=== PATIENT | female | born 2000 | race Caucasian/White ===

== ENCOUNTER 2023-06-13 00:19 | Emergency (ER) | payer SELFPAY ==
[2023-06-13 00:20] VITALS: BP 126/83; PULSE 97; RESP 16; TEMP 36.9; O2SAT 100; BMI 29.0
--- NOTE | 2023-06-13 00:33 | PC.NURSE ---
This nurse attempted to start a IV on the pt. pt refused to let me stick her stating that she needs a US IV because she will pass out. This nurse left the room without starting the IV
[2023-06-13 00:54] VITALS: BP 113/84; PULSE 97; RESP 16; O2SAT 100
[2023-06-13] MEDS: ondansetron 2 mg/ML SDV 2 mL 4 MG IVP (01:26)
[2023-06-13] MEDS: sodium chloride 0.9% 1,000 ML 999 ML IV (01:26)
[2023-06-13 01:35] LABS: Basophils # 0.1 10^3/uL (0.0-0.1); Basophils % 0.4 %; Eosinophils # 0.2 10^3/uL (0.0-0.8); Eosinophils % 1.5 %; Hematocrit 47.5 % (36-47); Lymphocytes # 2.1 10^3/uL (0.8-4.8); Lymphocytes % 13.4 %; Mean Corpuscular HGB Conc 33.3 g/dL (30-55); Mean Corpuscular Hemoglobin 28.4 pg (27-33); Mean Corpuscular Volume 85.4 fl (85-98); Mean Platelet Volume 10.2 fL (7.4-10.4); Monocytes % 6.4 %; Neutrophils # 12.14 10^3/uL (1.8-7.7); Neutrophils % 77.9 %; Nucleated Red Blood Cells % 0 %; Platelet Count 326 10^3/cmm (157-399); Red Blood Count 5.56 10^6/uL (3.85-5.65); Red Cell Distribution Width 12.4 % (12.1-15.1); White Blood Count 15.58 10^3/uL (3.29-11.43)
--- NOTE | 2023-06-13 01:49 | CTR_ITS ---
PROCEDURE INFORMATION: Exam: CT Abdomen And Pelvis With Contrast Exam date and time: 06/13/2023 2:25 AM Age: 23 years old Clinical indication: Pain and abnormal findings; Abnormal lab test; Elevated wbc and other: Urine; Abdominal pain; Localized; Lower; Patient HX: Pelvic pain; Additional info: Abdominal pain with elevated white count TECHNIQUE: Imaging protocol: Computed tomography of the abdomen and pelvis with contrast. Radiation optimization: All CT scans at this facility use at least one of these dose optimization techniques: automated exposure control; mA and/or kV adjustment per patient size (includes targeted exams where dose is matched to clinical indication); or iterative reconstruction. Contrast material: OMNI 350; Contrast volume: 100 ml; Contrast route: INTRAVENOUS (IV); REPORTING DATA: Count of CT and Cardiac NM exams in prior 12 months: This patient has received 0 known CTs and 0 known cardiac nuclear medicine studies in the 12 months prior to the current study. COMPARISON: No relevant prior studies available. RADIATION DOSE METRICS: Total DLP (mGy-cm): 921.58 FINDINGS: Liver: Normal. No mass. Gallbladder and bile ducts: Normal. No calcified stones. No ductal dilation. Pancreas: Normal. No ductal dilation. Spleen: Normal. No splenomegaly. Adrenal glands: Normal. No mass. Kidneys and ureters: Normal. No hydronephrosis. Stomach and bowel: Unremarkable. No obstruction. No mucosal thickening. Appendix: No evidence of appendicitis. Intraperitoneal space: Free fluid in the cul-de-sac. Vasculature: Unremarkable. No abdominal aortic aneurysm. Lymph nodes: Unremarkable. No enlarged lymph nodes. Urinary bladder: Unremarkable as visualized. Reproductive: 3.8 cm cystic lesion in the right adnexa. Further evaluation with ultrasound is recommended. Bones/joints: Unremarkable. No acute fracture. Soft tissues: Unremarkable. CT/CT abdomen pelvis w con* [id number] IMPRESSION: 3.8 cm cystic lesion in the right adnexa. Further evaluation with ultrasound is recommended. Moderate amount of free fluid in the cul-de-sac.
[2023-06-13 01:56] LABS: Alanine Aminotransferase 12 U/L (0-33); Albumin Level 4.5 g/dL (3.5-5.2); Alkaline Phosphatase 84 U/L (35-105); Anion Gap 13.9 (5-19); Aspartate Amino Transferase 12 U/L (0-32); Blood Urea Nitrogen 17 mg/dL (6-20); Calcium 9.6 mg/dL (8.5-10.5); Carbon Dioxide 26 mmol/L (22-29); Chloride 102 mmol/L (98-107); Globulin 3.7 g/dL (1.3-4.6); Glomerular Filtration Rate 123.9 mL/min (90-130); Glucose 111 mg/dL (65-115); Lipase 16 U/L (13-60); Osmolality Calculated 288 mOsm/kg (285-295); Potassium 3.9 mmol/L (3.5-5.1); Sodium 138 mmol/L (136-145); Total Bilirubin 0.6 mg/dL (0.15-1.2); Total Protein 8.2 g/dL (6.6-8.7)
[2023-06-13 02:09] LABS: Add Urine Microscopic? YES; Bilirubin Urine 1+ (Negative); Blood Urine 2+ (Negative); Glucose Urine UA Norm (Normal); Ketones Urine Negative (Negative); Leukocyte Esterase Urine 2+ (Negative); Nitrate Urine Negative (Negative); Protein Urine 1+ (Negative); Urine Appearance Cloudy (CLEAR); Urine Color Yellow (Yellow); Urobilinogen Urine Neg (Negative); pH Urine 5 (5-7)
[2023-06-13 02:10] LABS: Add Urine Culture? No; Amorphous Sediment Urine 2+ /hpf; Bacteria Urine 2+ /hpf; Mucus Urine 2+ /hpf; RBC Urine 0-4 /hpf (0-2); Squamous Epithelial Cell Urine 15-25 /hpf (0-5)
[2023-06-13 02:23] LABS: HCG Qualitative Urine. Negative (Negative)
[2023-06-13] MEDS: iohexol 350 mg/mL 500 mL Btl (per mL) IV (02:29)
[2023-06-13 03:00] VITALS: BP 141/81; PULSE 99; RESP 16; O2SAT 99
--- NOTE | 2023-06-13 03:33 | ED_ITS ---
HPI - Abdominal Pain 2 General: Chief Complaint: Abdominal Pain Stated Complaint: abd pain Time Seen by Provider: 06/13/23 00:28 History of Present Illness: 23-year-old female presents em ergency room with vague abdominal pain for the past 1 and half week and described the pain as cramping sensation with severity of 7 out of 10. Patient reveals increased pain today and denies any recent fever, chills, diarrhea, bloody stool or dark stool. No vaginal bleeding or vaginal discharge. Denies any flank pain recent foreign travel or sick contacts. Patient denies any prior abdominal surgery. Associated Symptoms: Reports nausea; Denies chills, coffee ground emesis, dysuria, fever(s), heartburn, hematuria, hematemesis and vomiting Related Data: Date of Last Menstrual Period: 05/21/23 Review of Systems 2 General: Reports: 10 or more systems reviewed and unremarkable except in HPI and below Const: Denies: fever(s), chills, body aches, change in appetite, change in weight, fatigue or malaise Card: Denies: chest pain, palpitations, irregular heart rhythm or edema Resp: Denies: dyspnea, productive cough or non-productive cough GI: Reports: abdominal pain and nausea; Denies: vomiting, hematemesis, coffee ground emesis, dysphagia, heartburn or early satiety : Denies: flank pain, difficulty voiding, dysuria, urinary frequency, urinary urgency, urinary hesitancy, dribbling, nocturia, oliguria, urinary incontinence, hematuria or genital lesions [facility] ED 2 Female Reproductive History: Date of last menstrual period: 05/21/23 Physical Exam 2 HENMT: COMMON NORMALS: normocephalic, atraumatic, hearing grossly normal bilaterally, external ears normal, EAC's normal, TM's normal bilaterally, Normal external nose present, Normal nasal mucous membranes and turbinates present, moist oral mucous membranes, oropharynx normal, dentition normal and gingiva normal HEAD & SCALP: normocephalic and atraumatic NOSE: Normal external nose present and Normal nasal mucous membranes and turbinates present E XTERNAL EAR: Yes external ears normal EXTERNAL AUDITORY CANAL: EAC's normal TYMPANIC MEMBRANE: TM's normal bilaterally Resp: COMMON NORMALS: normal respiratory effort, No retractions, No use of accessory muscles, clear to auscultation bilaterally and percussion normal A USCULTATION: clear to auscultation bilaterally PERCUSSION: percussion normal GI: COMMON NORMALS: Soft to palpation and No hepatosplenomegaly present I NSPECTION: Yes normal to inspection AUSCULTATION: Yes normoactive bowel sounds PALPATION: Yes Soft to palpation, No Firmness to palpation present (GI), Yes Tenderness to palpation present (GI) Details: LLQ, RLQ, LUQ and RUQ, Yes No hepatosplenomegaly present, No Hepatosplenomegaly present, No Hepatomegaly present, No Splenomegaly present, No Hernia present, No Palpable mass present, No Pulsatile mass present and No Ascites present : EXTERNAL FEMALE EXAM: No Hernia present Course 2 Reevaluation(s): Reevaluation #1: At [address] scan results discussed with patient. Patient still having pain. Given the finding on the CT scan. Ultrasound was ordered to rule out ovarian torsion. Care transferred to Dr. Curran pending ultrasound results Vital Signs: Vital signs: Vital Signs Temperature 98.4 F 06/13/23 07:46 Pulse Rate 106 H 06/13/23 07:46 Respiratory Rate 16 06/13/23 06:00 Blood Pressure 107/76 06/13/23 07:46 Pulse Oximetry 99 06/13/23 07:46 Oxygen Delivery Me thod Room Air 06/13/23 00:20 MDM - Abdominal Pain Medical Decision Making Patient made comfortable emergency room had extensive workup including CBC, CMP, lipase, UA, test CT abdomen pelvis. I discussed the lab finding with the patient. Patient will be discharged home with oral antibiotics and some for nausea. Close follow-up PCP recommended for further evaluation and treatment. Lab Data 06/13/23 01:28 06/13/23 01:28 Labs/Radiology: Radiology Impressions Abdomen/Pelvis CT 06/13/23 01:49 IMPRESSION: 3.8 cm cystic lesion in the right adnexa. Further evaluation with ultrasound is recommended. Moderate amount of free fluid in the cul-de-sac. Transvaginal US 06/13/23 05:33 IMPRESSION: 1. No sonographic evidence of torsion. 2. 4.2 x 3.4 x 2.1 cm hemorrhagic cyst in the right ovary. Small amount of fluid in the right adnexal region. Fluid in the cul-de-sac. Laboratory Results WBC 15.58 10^3/uL (3.29-11.43) H 06/13/23 01:28 RBC 5.56 10^6/uL (3.85-5.65) 06/13/23 01:28 Hgb 15.80 g/dL (11.27-16.99) 06/13/23 01:28 Hct 47.5 % (36-47) H 06/13/23 01:28 MCV 85.4 fl (85-98) 06/13/23 01:28 MCH 28.4 pg (27-33) 06/13/23 01:28 MCHC 33.3 g/dL (30-55) 06/13/23 01:28 RDW 12.4 % (12.1-15.1) 06/13/23 01:28 Plt Count 326 10^3/cmm (157-399) 06/13/23 01:28 MPV 10.2 fL (7.4-10.4) 06/13/23 01:28 Neut % (Auto) 77.9 % 06/13/23 01:28 Lymph % (Auto) 13.4 % 06/13/23 01:28 Jones % (Auto) 6.4 % 06/13/23 01:28 Eos % (Auto) 1.5 % 06/13/23 01:28 Baso % (Auto) 0.4 % 06/13/23 01:28 Neut # (Auto) 12.14 10^3/uL (1.8-7.7) H 06/13/23 01:28 Lymph # (Auto) 2.1 10^3/uL (0.8-4.8) 06/13/23 01:28 Jones # (Auto) 1.0 10^3/uL (0.2-0.9) H 06/13/23 01:28 Eos # (Auto) 0.2 10^3/uL (0.0-0.8) 06/13/23 01:28 Baso # (Auto) 0.1 10^3/uL (0.0-0.1) 06/13/23 01:28 Nucleated RBC % (auto) 0 % 06/13/23 01:28 Nucleated RBCs # 0.0 /100WBC 06/13/23 01:28 Sodium 138 mmol/L (136-145) 12/29/23 01:28 Potassium 3.9 mmol/L (3.5-5.1) 06/13/23 01:28 Chloride 102 mmol/L (98-107) 06/13/23 01:28 Carbon Dioxide 26 mmol/L (22-29) 06/13/23 01:28 Anion Gap 13.9 (5-19) 06/13/23 01:28 BUN 17 mg/dL (6-20) 06/13/23 01:28 Creatinine 0.6 mg/dL (0.5-0.9) 06/13/23 01:28 GFR Calculation 123.9 mL/min (90-130) 06/13/23 01:28 Glucose 111 mg/dL (65-115) 06/13/23 01:28 Calculated Osmolality 288 mOsm/kg (285-295) 06/13/23 01:28 Calcium 9.6 mg/dL (8.5-10.5) 06/13/23 01:28 Total Bilirubin 0.6 mg/dL (0.15-1.2) 06/13/23 01:28 AST 12 U/L (0-32) 06/13/23 01:28 ALT 12 U/L (0-33) 06/13/23 01:28 Alkaline Phosphatase 84 U/L (35-105) 06/13/23 01:28 Total Protein 8.2 g/dL (6.6-8.7) 06/13/23 01:28 Albumin 4.5 g/dL (3.5-5.2) 06/13/23 01:28 Globulin 3.7 g/dL (1.3-4.6) 06/13/23 01:28 Lipase 16 U/L (13-60) 06/13/23 01:28 HCG, Qual Negative (Negative) 06/13/23 01:28 Urine Color Yellow (Yellow) 06/13/23 01:28 Urine Appearance Cloudy (CLEAR) A 06/13/23 01:28 Urine pH 5 (5-7) 06/13/23 01:28 Ur Specific [place] 1.020 (1.005-1.030) 06/13/23 01:28 Urine Protein 1+ (Negative) H 06/13/23 01:28 Urine Glucose (UA) Norm (Normal) 06/13/23 01:28 Urine Ketones Negative (Negative) 06/13/23 01:28 Urine Blood 2+ (Negative) H 06/13/23 01:28 Urine Nitrate Negative (Negative) 06/13/23 01:28 Urine Bilirubin 1+ (Negative) H 06/13/23 01:28 Urine Urobilinogen Neg mg/dL (Negative) 06/13/23 01:28 Ur Leukocyte Esterase 2+ (Negative) H 06/13/23 01:28 Urine RBC 0-4 /hpf (0-2) H 06/13/23 01:28 Urine WBC 5-10 /hpf (0-5) H 06/13/23 01:28 Ur Squamous Epith Cells 15-25 /hpf (0-5) H 06/13/23 01:28 Ur Transition Epith Cell 5-10 /hpf 06/13/23 01:28 Amorphous Sediment 2+ /hpf 06/13/23 01:28 Urine Bacteria 2+ /hpf (NONE) H 06/13/23 01:28 Urine Mucus 2+ /hpf 06/13/23 01:28 All radiology interpretation(s) finalized by discharge Discharge Plan Discharge Patient Disposition: Home Clinical Impression: Abdominal pain Qualifiers: Abdominal location: unspecified location Qualified Code(s): R10.9 - Unspecified abdominal pain Ovarian cyst Qualifiers: Laterality: unspecified laterality Qualified Code(s): N83.209 - Unspecified ovarian cyst, unspecified side UTI (urinary tract infection) Qualifiers: Urinary tract infection type: site unspecified Hematuria presence: without hematuria Qualified Code(s): N39.0 - Urinary tract infection, site not specified Leukocytosis Qualifiers: Leukocytosis type: unspecified Qualified Code(s): D72.829 - Elevated white blood cell count, unspecified Condition: Stable Prescriptions: New ciprofloxacin HCl 500 mg tablet 500 mg PO Q12H Qty: 20 0RF Discharge Orders: Discharge ED (Routine); Ordered 06/13/23 Ordered By: Bryan Curran Referrals: Selin Anderson PAC [Primary Care Provider] - 1 week Patient Instructions: Abdominal Pain (ED), Opioid Safety, Pain Management Activity Restrictions/Additional Instructions: Please take all your medicine as directed. Please follow-up with your family practice physician in the next 7 to 10 days for further evaluation and treatment. Coding Level of Care Code ED Spider Assembler for Christine Cohn
[2023-06-13 04:30] VITALS: BP 116/88; PULSE 85; RESP 16; O2SAT 99
--- NOTE | 2023-06-13 05:33 | USR_ITS ---
PROCEDURE INFORMATION: Exam: US Pelvis, Transvaginal Exam date and time: 06/13/2023 6:38 AM Age: 23 years old Clinical indication: Abdominal pain and pelvic pain; Lower abdomen; Additional info: Abdominal pain with ovarian cyst rule out torsion TECHNIQUE: Imaging protocol: Real-time transvaginal pelvic ultrasound with image documentation. Transvaginal imaging was used for better evaluation of the endometrium, adnexa, and/or cervix. COMPARISON: CT abdomen pelvis w con* [id number] 06/13/2023 2:25 AM FINDINGS: Uterus: Uterus is normal. Endometrial stripe is normal. Right ovary/adnexa: 3.4 x 2.1 x 4.2 cm hemorrhagic cyst in the right ovary. Normal ovarian blood flow Left ovary/adnexa: Normal. No mass. Normal ovarian blood flow. Intraperitoneal space: Small amount of fluid in the right adnexal region. Fluid in the cul-de-sac. US/US transvaginal [id number] IMPRESSION: 1. No sonographic evidence of torsion. 2. 4.2 x 3.4 x 2.1 cm hemorrhagic cyst in the right ovary. Small amount of fluid in the right adnexal region. Fluid in the cul-de-sac.
[2023-06-13 06:00] VITALS: BP 107/76; PULSE 106; RESP 16; O2SAT 99
[2023-06-13 07:46] VITALS: BP 107/76; PULSE 106; TEMP 36.9; O2SAT 99
== END 2023-06-13 07:47 | disposition home or self-care (01) ==
PROVIDERS: Emergency Provider Family Medicine; PCP Physician Assistant
DX: N83.201 Unspecified ovarian cyst, right side (principal); N39.0 Urinary tract infection, site not specified; D72.829 Elevated white blood cell count, unspecified
CPT/HCPCS: 74177; 76830; 80053; 81001; 81025; 83690; 85025; 96374; 99285; J2405; J7030; Q9967

== ENCOUNTER 2024-03-14 16:28 | Emergency (ER) | payer SELFPAY ==
[2024-03-14 17:17] VITALS: BP 90/50; PULSE 87; RESP 17; TEMP 38.4; O2SAT 98; BMI 30.9
--- NOTE | 2024-03-14 17:33 | ED_ITS ---
HPI - Weakness General: Chief complaint: Weakness Stated complaint: body pain, weakness, Time Seen by Provider: 03/14/24 17:31 History of Present Illness: 23-year-old female comes in today with c omplaints of weakness and bodyaches. Patient presents with a temperature of 101.1. Patient reports sore throat. Review of Systems General: Reports: 10 or more systems reviewed and unremarkable except in HPI and below Physical Exam Const: COMMON NORMALS: alert HENMT: COMMON NORMALS: normocephalic HEAD & SCALP: normocephalic THROAT: abnormal tonsil bilateral erythema and hypertrophy Neck/C-Spine: COMMON NORMALS: full ROM and no meningeal signs Resp: COMMON NORMALS: normal respiratory effort Cardio: COMMON NORMALS: regular rate RATE: regular rate Back/Pelvis: COMMON NORMALS: thoracic and lumbar spine normal to inspection Extremity: COMMON NORMALS: full ROM Neuro: SENSORIUM/ORIENTATION: Yes alert MENINGEAL SIGNS: Yes no meningeal signs Skin: COMMON NORMALS: turgor normal GENERAL SKIN EXAM: turgor normal Course Vital Signs: Vital signs: Vital Signs Temperature 101.1 F H 03/14/24 17:17 Pulse Rate 83 03/14/24 18:02 Respiratory Rate 17 03/14/24 17:17 Blood Pressure 90/50 03/14/24 17:17 Pulse Oximetry 99 03/14/24 18:02 Oxygen Delivery Me thod Room Air 03/14/24 18:02 MDM - Weakness Medical Decision Making 23-year-old female comes in today for complaints of bodyaches, fever, and throat pain. On exam patient appears nontoxic. Posterior pharynx is erythematous with tonsillar enlargement. Patient has a temperature of 101.1. Lungs are clear to auscultation. Skin is warm and dry. Differential diagnosis includes not limited to viral syndrome, upper respiratory infection, strep pharyngitis. Strep test was positive. Patient was negative for COVID and flu. Reviewed exam with patient with recommendation for treatment and follow-up. Patient was placed on Augmentin 875 1 tablet twice a day for 7 days. Patient was recommended to follow-up with primary care for further instructions return to ED for new concerns. Lab Data Laboratory Results Coronavirus (PCR) Negative (Negative) 03/14/24 17:44 Influenza A (PCR) Negative (Negative) 03/14/24 17:44 Influenza Type B (PCR) Negative (Negative) 03/14/24 17:44 RSV (PCR) Negative (Negative) 03/14/24 17:44 Group A Strep Rapid Positive (Negative) H 03/14/24 17:44 No radiology studies performed this visit Discharge Plan Discharge Patient Disposition: Home Clinical Impression: Strep sore throat Condition: Stable Prescriptions: New amoxicillin-pot clavulanate 875-125 mg tablet 1 tab PO BID Qty: 14 0RF No Action ciprofloxacin HCl 500 mg tablet 500 mg PO Q12H Qty: 20 0RF Discharge Orders: Discharge ED (Routine); Ordered 03/14/24 Ordered By: Anand Julien Referrals: Selin Anderson PAC [Primary Care Provider] - Patient Instructions: Strep Throat (ED) Stand Alone Forms: Work/School Release Coding Level of Care Code ED Head Of Conservation for [facility] Fwd Related Data Previous Rx's Medication Instructions Recorded ciprofloxacin HCl 500 mg tablet 500 mg PO Q12H #20 tabs 06/13/23 amoxicillin 875 mg-potassium 1 tab PO BID #14 tabs 03/14/24 clavulanate 125 mg tablet Allergies Allergy/AdvReac Type Severity Reaction Status Date / Time No Known Allergies Allergy Verified 06/13/23 00:26
[2024-03-14 18:02] VITALS: PULSE 83; O2SAT 99
[2024-03-14 18:17] LABS: Rapid Strep A Test Positive (Negative)
[2024-03-14] MEDS: acetaminophen 500 mg Tablet 1000 MG PO (18:27)
[2024-03-14 18:42] LABS: Covid PCR NEGATIVE (Negative); Influenza A NEGATIVE (Negative); Influenza B NEGATIVE (Negative); Respiratory Syncytial Virus Ce NEGATIVE (Negative)
[2024-03-14] MEDS: amoxicillin-clav 875-125 mg Tablet 1 TAB PO (19:40)
[2024-03-14 20:03] VITALS: PULSE 97; RESP 16; O2SAT 95
== END 2024-03-14 19:42 | disposition home or self-care (01) ==
PROVIDERS: Emergency Provider Nurse Practitioner Family; PCP Physician Assistant
DX: J02.0 Streptococcal pharyngitis (principal); Z11.52 Encounter for screening for COVID-19
CPT/HCPCS: 0241U; 87880; 99283

== ENCOUNTER 2024-04-19 05:52 | Emergency (ER) | payer SELFPAY ==
[2024-04-19 05:53] VITALS: BP 125/86; PULSE 95; RESP 16; TEMP 37; O2SAT 95; BMI 41.1
--- NOTE | 2024-04-19 06:17 | ED_ITS ---
HPI - Wound/Laceration General: Chief Complaint: Wound/Laceration Stated Complaint: left hand wound Time Seen by Provider: 04/19/24 05:54 History of Present Illness: 23-year-old female presents to the [facility] ency room via ambulance with a laceration to the palmar side at the MCP joint and the flexor fold. She is unsure of her last tetanus shot. She was using a knife to try to pry some frozen sausages apart and incidentally stabbed herself. Related Data Previous Rx's Medication Instructions Recorded ciprofloxacin HCl 500 mg tablet 500 mg PO Q12H #20 tabs 06/13/23 amoxicillin 875 mg-potassium 1 tab PO BID #14 tabs 03/14/24 clavulanate 125 mg tablet Allergies Allergy/AdvReac Type Severity Reaction Status Date / Time No Known Allergies Allergy Verified 06/13/23 00:26 Review of Systems Skin/Breast: Reports: new lesions [facility] ED Female Reproductive History: Date of last menstrual period: 03/16/24 Physical Exam Extremity: OTHER: Left fifth finger at the flexor crease of the MCP joint there is a proximately 1 cm wound. It is full-thickness. Cannot visualize any deep structures through the wound. Neurovascularly intact. Patient able to hold against resistance in flexion. Wound was aggressively irrigated after local anesthesia applied. Procedures Laceration Laceration 1: Site: hand (Palmar aspect, flexor crease left fifth MTP) Side (If applicable): left Size (cm): 1 Description: linear Depth: simple, single layer Local Anesthetic: lidocaine 1% Amount of anesthesia used (mL): 2 Pre-repair: wound explored, irrigated extensively and deep structures intact (Deep structures not visualized) Skin layer closed with: other (Prolene) Size (cm): 4-0 Number of sutures: 1 Technique: simple, interrupted Course Vital Signs: Vital signs: Vital Signs Temperature 98.6 F 04/19/24 05:53 Pulse Rate 95 04/19/24 05:53 Respiratory Rate 16 04/19/24 05:53 Blood Pressure 125/86 04/19/24 05:53 Pulse Oximetry 95 04/19/24 05:53 Oxygen Delivery Me thod Room Air 04/19/24 05:53 MDM - Wound/Laceration Medical Decision Making Discharge home sutures out in approximately 10 days wound care instructions given No radiology studies performed this visit Discharge Plan Discharge Patient Disposition: Home Clinical Impression: Laceration Condition: Stable Prescriptions: No Action ciprofloxacin HCl 500 mg tablet 500 mg PO Q12H Qty: 20 0RF amoxicillin-pot clavulanate 875-125 mg tablet 1 tab PO BID Qty: 14 0RF Discharge Orders: Discharge ED (Routine); Ordered 04/19/24 Ordered By: Konstantin Mayorga Referrals: Selin Anderson PAC [Primary Care Provider] - Discharge Diet: Usual diet Discharge Activity: Resume usual activity Patient Instructions: Opioid Safety, Pain Management Activity Restrictions/Additional Instructions: Thank you for choosing [facility] for your healthcare needs today. It is very important that you follow up as instructed or that you return to the Emergency Department should you have concerns or if your condition changes or worsens in any way. You were seen today after a laceration to the left hand at the base of the left fifth finger on the palmar side. On exam you had a good tendon function and se nsation. Wound was closed with a single stitch the stitch can be removed in approximately 10 days by your primary care doctor you can apply topical [id number] antibiotic ointment to the wound 1-2 times a day keep wound covered while you are working throughout the day. Do not soak the wound for prolonged periods of times and water. Return if there are any signs of redness or signs of infection. Your tetanus was updated. Coding Level of Care Code ED French Weaver for Christine Cohn
[2024-04-19] MEDS: tetanus-dipt-pertussis 0.5 mL SDV IM (06:31)
[2024-04-19] MEDS: lidocaine 1% 10 ML INJ INJECTION (06:34)
[2024-04-19 06:41] VITALS: BP 130/74; PULSE 92; O2SAT 96
== END 2024-04-19 06:43 | disposition home or self-care (01) ==
PROVIDERS: Emergency Provider Family Medicine; PCP Physician Assistant
DX: S61.412A Laceration without foreign body of left hand, initial encounter (principal); W26.0XXA Contact with knife, initial encounter
CPT/HCPCS: 12001; 90471; 90715; 99283

== ENCOUNTER 2024-06-03 10:17 | Emergency (ER) | payer SELFPAY ==
--- NOTE | 2024-06-03 10:24 | XR_ITS ---
WS: [id number] Portable AP upright chest, 06/03/2024 Clinical Data: cough disoriented Comparison: None. Findings: No nodules, masses or effusions are seen. The heart is normal. The pulmonary vascularity is not increased. No pneumonia or pneumothorax is seen. XR/XR chest 1V portable [id number] Impression: Negative chest.
[2024-06-03 10:25] VITALS: BP 150/86; PULSE 98; TEMP 37; O2SAT 98; BMI 40.8
[2024-06-03 12:03] LABS: Basophils # 0.1 10^3/uL (0.0-0.1); Basophils % 0.3 %; Eosinophils # 0.1 10^3/uL (0.0-0.8); Eosinophils % 0.5 %; Hematocrit 42.4 % (36-47); Lymphocytes # 2.7 10^3/uL (0.8-4.8); Lymphocytes % 18.1 %; Mean Corpuscular HGB Conc 33.5 g/dL (30-55); Mean Corpuscular Hemoglobin 27.4 pg (27-33); Mean Corpuscular Volume 81.9 fl (85-98); Mean Platelet Volume 10.1 fL (7.4-10.4); Monocytes # 0.7 10^3/uL (0.2-0.9); Monocytes % 4.6 %; Neutrophils # 11.44 10^3/uL (1.8-7.7); Neutrophils % 76.2 %; Nucleated Red Blood Cells % 0 %; Platelet Count 284 10^3/cmm (157-399); Red Blood Count 5.18 10^6/uL (3.85-5.65); Red Cell Distribution Width 11.9 % (12.1-15.1); White Blood Count 15.02 10^3/uL (3.29-11.43)
[2024-06-03 12:25] LABS: Alanine Aminotransferase 18 U/L (0-33); Albumin Level 3.9 g/dL (3.5-5.2); Alkaline Phosphatase 112 U/L (35-105); Anion Gap 16.7 (5-19); Aspartate Amino Transferase 13 U/L (0-32); Blood Urea Nitrogen 8 mg/dL (6-20); Calcium 9.4 mg/dL (8.5-10.5); Carbon Dioxide 24 mmol/L (22-29); Chloride 100 mmol/L (98-107); Globulin 4.2 g/dL (1.3-4.6); Glomerular Filtration Rate 151.6 mL/min (90-130); Glucose 108 mg/dL (65-115); Osmolality Calculated 283 mOsm/kg (285-295); Potassium 3.7 mmol/L (3.5-5.1); Sodium 137 mmol/L (136-145); Total Bilirubin 0.5 mg/dL (0.15-1.2); Total Protein 8.1 g/dL (6.6-8.7)
[2024-06-03 13:08] LABS: Bilirubin Urine Negative (Negative); Blood Urine Negative (Negative); Glucose Urine UA Negative (Normal); Ketones Urine Negative (Negative); Leukocyte Esterase Urine Negative (Negative); Nitrate Urine Negative (Negative); Protein Urine Negative (Negative); Specific Gravity, Urine 1.013 (1.005-1.030); Urine Appearance Clear (CLEAR); Urine Color Yellow (Yellow); Urobilinogen Urine 0.2 mg/dL (Negative)
[2024-06-03 13:09] VITALS: BP 119/80; PULSE 96; RESP 16; O2SAT 98
[2024-06-03 13:13] LABS: Add Urine Microscopic? YES; Bacteria Urine Trace /hpf; Hyaline Casts Urine 0-4 /lpf; Squamous Epithelial Cell Urine 0-5 /hpf (0-5); WBC Urine 0-5 /hpf (0-5)
[2024-06-03] MEDS: ondansetron 2 mg/ML SDV 2 mL 8 MG PO (13:19)
[2024-06-03] MEDS: dexamethasone 10 mg/mL INJ IM (13:19)
--- NOTE | 2024-06-03 13:19 | ED_ITS ---
HPI - COVID 2 General: Chief Complaint: COVID symptoms Stated Complaint: f,v,n, disorented, achy all over, coughing Time Seen by Provider: 06/03/24 11:48 Source: patient Mode of arrival: ambulatory Limitations: no limitations Triage information: Has fever, cough or shortness of breath . Exposure to COVID + person last 14 days History of Present Illness: Patient is a 24-year-old female with no pertinent past medical history reporting to the emergency department complaining of nausea vomiting diarrhea and other upper respiratory symptoms for the past few days. States that she had a home COVID-positive test, but has felt progressively more more sick. Symptoms including the cough, headache, bilateral ear pain, and overall fatigue. She is not running any fevers, she has been taking Tylenol and Motrin for fevers and does feel dehydrated. Denies any severe shortness of breath, chest pain, palpitations, syncope, lightheadedness or dizziness, or other concerning symptoms at this time MD complaint: known COVID positive Prior covid testing: yes, results known Prior testing date: 06/03/24 COVID 19 common symptoms: positive non-productive cough, fatigue, body aches, headache(s), nausea, vomiting and diarrhea; negative fever(s), chills, dyspnea or throat pain COVID 19 other sytmptoms: negative chest pain Onset (ago): day(s) Severity: moderate Treatment prior to arrival: acetaminophen and ibuprofen COVID Results: 2 Coronavirus (PCR) Negative (Negative) 06/03/24 13:07 Related Data Previous Rx's Medication Instructions Recorded ondansetron 4 mg disintegrating 4 mg PO TID PRN nausea and 06/03/24 tablet vomiting #15 tabs Allergies Allergy/AdvReac Type Severity Reaction Status Date / Time No Known Allergies Allergy Verified 06/03/24 10:29 Review of Systems 2 General: Reports: 10 or more systems reviewed and unremarkable except in HPI and below Const: Reports: body aches and fatigue; Denies: fever(s) or chills Eyes: Denies: change in vision ENMT: Reports: ear or mastoid pain; Denies: throat pain or nasal discharge Card: Denies: chest pain, palpitations, swelling of feet/ankles or lightheadedness Resp: Reports: non-productive cough; Denies: dyspnea or wheezing GI: Reports: nausea, vomiting and diarrhea; Denies: abdominal pain or constipation : Denies: flank pain, difficulty voiding, dysuria or urinary frequency Musc: Denies: neck pain, back pain or joint pain Skin/Breast: Denies: rash Neuro: Reports: headache(s); Denies: numbness in extremities or weakness in extremities PFSH ED 2 PFSH: Social History Smoking and tobacco/nicotine status: unknown if used tobacco/nicotine Physical Exam 2 Const: COMMON NORMALS: no acute distress and no limitations GENERAL APPEARANCE: cooperative, comfortable and well developed O RIENTATION/CONSCIOUSNESS: Yes awake HENMT: COMMON NORMALS: normocephalic, atraumatic and hearing grossly normal bilaterally HEAD & SCALP: normocephalic and atraumatic MOUTH: Normal oral and palatal mucosa present THROAT: posterior oropharynx normal and tonsils normal Eye: COMMON NORMALS: Equal, round and reactive pupils present, EOMs intact bilaterally and conjunctivae normal CONJUNCTIVA: Yes conjunctivae normal P UPIL: Yes Equal, round and reactive pupils present Neck/C-Spine: COMMON NORMALS: full ROM, supple and no JVD Resp: COMMON NORMALS: normal respiratory effort, No retractions, No use of accessory muscles and clear to auscultation bilaterally AUSCULTATION: clear to auscultation bilaterally Cardio: COMMON NORMALS: no JVD, regular rate, regular rhythm, No clicks present (Cardio), No murmurs present (Cardio) and No rub (Cardio) RATE: r egular rate RHYTHM: regular rhythm GI: COMMON NORMALS: Normal to inspection, nondistended, normoactive bowel sounds present, Soft to palpation and non-tender AUSCULTATION: Yes normoactive bowel sounds PALPATION: Yes Soft to palpation RECTAL EXAM: d eferred Extremity: COMMON NORMALS: normal to inspection, full ROM and capillary refill normal Psych: COMMON NORMALS: mental status grossly normal and Normal thought process present THOUGHT PROCESS: Normal thought process present Skin: COMMON NORMALS: no rashes or lesions noted GENERAL SKIN EXAM: no rashes or lesions noted Course 2 Vital Signs: Vital signs: Vital Signs Temperature 98.6 F 06/03/24 10:25 Pulse Rate 96 06/03/24 13:09 Respiratory Rate 16 06/03/24 13:09 Blood Pressure 119/80 06/03/24 13:09 Pulse Oximetry 98 06/03/24 13:09 Oxygen Delivery Me thod Room Air 06/03/24 13:09 MDM - COVID Medical Decision Making Patient presenting with a few days of upper respiratory symptoms as well as new onset nausea vomiting diarrhea. States she tested positive for COVID at home, her COVID swab here was negative. Slight bump in her white count, likely secondary to a viral infection as the rest of her labs were okay including negative urinalysis. She was given a shot of Decadron here as well as 1 dose of Zofran and notes that she was already feeling better. She was requesting a work note, encouraged her to try [id number] therapies and monitor her condition closely as this is likely viral but if it continues to persist then we will pursue a bacterial etiology. She is comfortable with discharge home at this time, her vitals have been stable throughout ED course and she has been breathing comfortably on room air. Her physical exam was unremarkable. Lab Data 06/03/24 11:55 06/03/24 11:55 Radiology Impressions Chest X-Ray 06/03/24 10:24 Impression: Negative chest. Laboratory Results WBC 15.02 10^3/uL (3.29-11.43) H 06/03/24 11:55 RBC 5.18 10^6/uL (3.85-5.65) 06/03/24 11:55 Hgb 14.20 g/dL (11.27-16.99) 06/03/24 11:55 Hct 42.4 % (36-47) 06/03/24 11:55 MCV 81.9 fl (85-98) L 06/03/24 11:55 MCH 27.4 pg (27-33) 06/03/24 11:55 MCHC 33.5 g/dL (30-55) 06/03/24 11:55 RDW 11.9 % (12.1-15.1) L 06/03/24 11:55 Plt Count 284 10^3/cmm (157-399) 06/03/24 11:55 MPV 10.1 fL (7.4-10.4) 06/03/24 11:55 Neut % (Auto) 76.2 % 06/03/24 11:55 Lymph % (Auto) 18.1 % 06/03/24 11:55 [place] % (Auto) 4.6 % 06/03/24 11:55 Eos % (Auto) 0.5 % 06/03/24 11:55 Baso % (Auto) 0.3 % 06/03/24 11:55 Neut # (Auto) 11.44 10^3/uL (1.8-7.7) H 06/03/24 11:55 Lymph # (Auto) 2.7 10^3/uL (0.8-4.8) 06/03/24 11:55 [place] # (Auto) 0.7 10^3/uL (0.2-0.9) 06/03/24 11:55 Eos # (Auto) 0.1 10^3/uL (0.0-0.8) 06/03/24 11:55 Baso # (Auto) 0.1 10^3/uL (0.0-0.1) 06/03/24 11:55 Nucleated RBC % (auto) 0 % 06/03/24 11:55 Nucleated RBCs # 0.0 /100WBC 06/03/24 11:55 Sodium 137 mmol/L (136-145) 06/03/24 11:55 Potassium 3.7 mmol/L (3.5-5.1) 06/03/24 11:55 Chloride 100 mmol/L (98-107) 06/03/24 11:55 Carbon Dioxide 24 mmol/L (22-29) 06/03/24 11:55 Anion Gap 16.7 (5-19) 06/03/24 11:55 BUN 8 mg/dL (6-20) 06/03/24 11:55 Creatinine 0.5 mg/dL (0.5-0.9) 06/03/24 11:55 GFR Calculation 151.6 mL/min (90-130) H 06/03/24 11:55 Glucose 108 mg/dL (65-115) 06/03/24 11:55 Calculated Osmolality 283 mOsm/kg (285-295) L 06/03/24 11:55 Calcium 9.4 mg/dL (8.5-10.5) 06/03/24 11:55 Magnesium 2.0 mg/dL (1.7-2.3) 06/03/24 11:55 Total Bilirubin 0.5 mg/dL (0.15-1.2) 06/03/24 11:55 AST 13 U/L (0-32) 06/03/24 11:55 ALT 18 U/L (0-33) 06/03/24 11:55 Alkaline Phosphatase 112 U/L (35-105) H 06/03/24 11:55 Total Protein 8.1 g/dL (6.6-8.7) 06/03/24 11:55 Albumin 3.9 g/dL (3.5-5.2) 06/03/24 11:55 Globulin 4.2 g/dL (1.3-4.6) 06/03/24 11:55 Urine Color Yellow (Yellow) 06/03/24 12:00 Urine Appearance Clear (CLEAR) 06/03/24 12:00 Urine pH 5.0 (5-7) 06/03/24 12:00 Ur Specific [place] 1.013 (1.005-1.030) 06/03/24 12:00 Urine Protein Negative (Negative) 06/03/24 12:00 Urine Glucose (UA) Negative (Normal) 06/03/24 12:00 Urine Ketones Negative (Negative) 06/03/24 12:00 Urine Blood Negative (Negative) 06/03/24 12:00 Urine Nitrate Negative (Negative) 06/03/24 12:00 Urine Bilirubin Negative (Negative) 06/03/24 12:00 Urine Urobilinogen 0.2 mg/dL (Negative) 06/03/24 12:00 Ur Leukocyte Esterase Negative (Negative) 06/03/24 12:00 Urine RBC 3-5 /hpf (0-2) 06/03/24 12:00 Urine WBC 0-5 /hpf (0-5) 06/03/24 12:00 Ur Squamous Epith Cells 0-5 /hpf (0-5) 06/03/24 12:00 Amorphous Sediment Not Reportable 06/03/24 12:00 Urine Bacteria Trace /hpf (NONE) 06/03/24 12:00 Hyaline Casts 0-4 /lpf H 06/03/24 12:00 Coronavirus (PCR) Negative (Negative) 06/03/24 13:07 Influenza A (PCR) Negative (Negative) 06/03/24 13:07 Influenza Type B (PCR) Negative (Negative) 06/03/24 13:07 RSV (PCR) Negative (Negative) 06/03/24 13:07 2 Coronavirus (PCR) Negative (Negative) 06/03/24 13:07 All radiology interpretation(s) finalized by discharge Discharge Plan Discharge Patient Disposition: Home Clinical Impression: Viral infection Condition: Stable Prescriptions: New ondansetron 4 mg tablet,disintegrating 4 mg PO TID PRN (Reason: nausea and vomiting) Qty: 15 0RF Discharge Orders: Discharge ED (Routine); Ordered 06/03/24 Ordered By: Jan Dennis Referrals: Selin Anderson, PAC [Primary Care Provider] - Patient Instructions: Viral Syndrome (ED) Activity Restrictions/Additional Instructions: Drink plenty of fluids. See attached patient instructions for further education. 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 Please begin taking [id number] Flonase as well for your ear pain and sinus pain. May also take Mucinex. Likely you have a viral illness, however monitor your condition and if you continue to have worsening of symptoms over the next few days return for reevaluation. Stand Alone Forms: Work/School Release Coding Level of Care Code ED Small Offset Printer for Christine Cohn
[2024-06-03 13:24] LABS: Add Urine Culture? No
[2024-06-03 13:54] LABS: Covid PCR NEGATIVE (Negative); Influenza A NEGATIVE (Negative); Influenza B NEGATIVE (Negative); Respiratory Syncytial Virus Ce NEGATIVE (Negative)
[2024-06-03 14:06] VITALS: BP 104/73; PULSE 92; RESP 16; O2SAT 96
== END 2024-06-03 14:08 | disposition home or self-care (01) ==
PROVIDERS: Emergency Medicine; Emergency Provider Physician Assistant; PCP Physician Assistant
DX: B34.9 Viral infection, unspecified (principal); Z11.52 Encounter for screening for COVID-19
CPT/HCPCS: 0241U; 36415; 71045; 80053; 81001; 83735; 85025; 96372; 99284; J1100; J2405

== ENCOUNTER 2024-06-06 15:02 | Emergency (ER) | payer SELFPAY ==
[2024-06-06 15:11] VITALS: BP 113/84; PULSE 120; RESP 16; TEMP 36.9; O2SAT 96
--- NOTE | 2024-06-06 15:45 | W.ED.NAVMDI ---
HPI - Nausea/Vomiting/Diarrhea General: Chief complaint: Nausea/Vomiting/Diarrhea Stated complaint: vomitting Time Seen by Provider: 06/06/24 15:25 History of Present Illness: Patient is a 4-year-old female that presents to the emergency department for complaints of ongoing nausea, headache, sinus drainage. Patient has taken a home COVID test that was positive but also had a negative COVID test. She was evaluated in the emergency department earlier this week and was diagnosed with a viral URI and was going to be treated at home with Zofran for the nausea. Patient has been unable to fill the Zofran that was prescribed due to financial restraint. At this time she is able to feel that both. She return to the ER for work note, antibiotics for sinusitis, and just general reevaluation. Patient has been eating and drinking today without vomiting She does continue to have a headache and has purulent nasal drainage. Associated nausea: Yes Associated symtoms: Reports fatigue, headache(s) and nausea; Denies change in vision, chest pain, dysuria or palpitations Related Data Home Medications Medication Instructions Recorded Confirmed acetaminophen 325 mg tablet 650 mg PO QID PRN Pain 06/06/24 06/06/24 (Tylenol) Previous Rx's Medication Instructions Recorded ondansetron 4 mg disintegrating 4 mg PO TID PRN nausea and 06/03/24 tablet vomiting #15 tabs amoxicillin 875 mg-potassium 1 tab PO BID 7 days #14 tabs 06/06/24 clavulanate 125 mg tablet Allergies Allergy/AdvReac Type Severity Reaction Status Date / Time No Known Allergies Allergy Verified 06/06/24 15:16 Review of Systems General: Reports: 10 or more systems reviewed and unremarkable except in HPI and below Const: Reports: body aches and fatigue; Denies: fever(s) or chills Eyes: Denies: change in vision ENMT: Reports: ear or mastoid pain, nasal discharge (Purulent) and nasal congestion; Denies: throat pain Card: Denies: chest pain, palpitations, swelling of feet/ankles or lightheadedness Resp: Reports: non-productive cough; Denies: dyspnea or wheezing GI: Reports: nausea; Denies: abdominal pain : Denies: flank pain, difficulty voiding, dysuria or urinary frequency Musc: Denies: neck pain, back pain or joint pain Skin/Breast: Denies: rash Neuro: Reports: headache(s); Denies: numbness in extremities or weakness in extremities PFSH ED PFSH: Social History Smoking and tobacco/nicotine status: unknown if used tobacco/nicotine Physical Exam Const: COMMON NORMALS: no acute distress and no limitations GENERAL APPEARANCE: cooperative, comfortable and well developed ORIENTATION/CONSCIOUSNESS: Yes awake HENMT: COMMON NORMALS: normocephalic, atraumatic and hearing grossly normal bilaterally HEAD & SCALP: normocephalic and atraumatic MOUTH: Normal oral and palatal mucosa present THROAT: posterior oropharynx normal and tonsils normal Eye: COMMON NORMALS: Equal, round and reactive pupils present, EOMs intact bilaterally and conjunctivae normal CONJUNCTIVA: Yes conjunctivae normal PUPIL: Yes Equal, round and reactive pupils present Neck/C-Spine: COMMON NORMALS: full ROM, supple and no JVD Resp: COMMON NORMALS: normal respiratory effort, No retractions, No use of accessory muscles and clear to auscultation bilaterally AUSCULTATION: clear to auscultation bilaterally Cardio: COMMON NORMALS: no JVD, regular rate, regular rhythm, No clicks present (Cardio), No murmurs present (Cardio) and No rub (Cardio) RATE: regular rate RHYTHM: regular rhythm GI: COMMON NORMALS: Normal to inspection, nondistended, normoactive bowel sounds present, Soft to palpation and non-tender AUSCULTATION: Yes normoactive bowel sounds PALPATION: Yes Soft to palpation RECTAL EXAM: deferred Extremity: COMMON NORMALS: normal to inspection, full ROM and capillary refill normal Psych: COMMON NORMALS: mental status grossly normal and Normal thought process present THOUGHT PROCESS: Normal thought process present Skin: COMMON NORMALS: no rashes or lesions noted GENERAL SKIN EXAM: no rashes or lesions noted Course Vital Signs: Vital signs: Vital Signs Temperature 98.4 F 06/06/24 15:11 Pulse Rate 107 H 06/06/24 16:04 Respiratory Rate 16 06/06/24 15:11 Blood Pressure 121/84 06/06/24 16:04 Pulse Oximetry 96 06/06/24 16:04 MDM - Nausea/Vomiting/Diarrhea Medical Decision Making Patient evaluated in the emergency department today for sinus pressure, sinus drainage that is purulent, nasal congestion. She has had the above-mentioned complaints for 11 days. Purulent nasal drainage for 9. Going to treat her for sinusitis. Augmentin prescribed and provided here in the emergency department. She did also ask for a work note because she does not feel she is ready return to work. I have given her a release. She may return to work when she is better or on 06/09/2024. No radiology studies performed this visit Discharge Plan Discharge Patient Disposition: Home Clinical Impression: Viral infection, Sinusitis Condition: Stable Prescriptions: New amoxicillin-pot clavulanate 875-125 mg tablet 1 tab PO BID 7 Days Qty: 14 0RF No Action ondansetron 4 mg tablet,disintegrating 4 mg PO TID PRN (Reason: nausea and vomiting) Qty: 15 0RF acetaminophen [Tylenol] 325 mg Tablet 650 mg PO QID PRN (Reason: Pain) Discharge Orders: Discharge ED (Routine); Ordered 06/06/24 Ordered By: Hanny Lugo Referrals: Selin Anderson PAC [Primary Care Provider] - Discharge Diet: Advance as tolerated Discharge Activity: Resume usual activity Patient Instructions: Pain Management, Sinusitis - Acute Activity Restrictions/Additional Instructions: Please take your antibiotic as prescribed Please use the Zofran prescribed for your nausea and vomiting. Please return to the emergency department for new concerning or worsening symptoms Stand Alone Forms: Work/School Release Coding Level of Care Code ED Wildland Fire Operations Specialist for Christine Cohn
[2024-06-06 16:04] VITALS: BP 121/84; PULSE 107; O2SAT 96
== END 2024-06-06 16:05 | disposition home or self-care (01) ==
PROVIDERS: Emergency Provider Nurse Practitioner; PCP Physician Assistant
DX: J32.9 Chronic sinusitis, unspecified (principal)
CPT/HCPCS: 99283

== ENCOUNTER 2024-07-23 11:35 | Emergency (ER) | payer SELFPAY ==
[2024-07-23 12:42] VITALS: BP 168/84; PULSE 127; RESP 18; TEMP 38.1; O2SAT 96; BMI 40.1
--- NOTE | 2024-07-23 12:48 | W.ED.DENTAL ---
HPI - Dental/Oral General: Chief complaint: Dental/Oral Stated complaint: lower lt dental pain Time Seen by Provider: 07/23/24 11:36 Source: patient Mode of arrival: ambulatory Limitations: no limitations History of Present Illness: Patient is a 24-year-old female presents to ED today with complaint of pain involving a left lower molar. She states the tooth is cracked. She has contacted dentist but cannot be seen until January. She has not noticed any swelling. She arrives febrile and mildly tachycardic. She states she has been having fevers and body aches. Denies headache or neck pain/stiffness. She is not having any vomiting or diarrhea. No trouble swallowing or breathing. MD Complaint: tooth pain Teeth map:  1. Onset (ago): day(s) Duration: constant Severity: moderate Relieving factors: nothing Exacerbating factors: nothing Context: history of dental caries and poor dental care Associated symptoms: Reports fever(s); Denies ear or mastoid pain or odynophagia Treatment prior to arrival: oral analgesic Related Data Home Medications ?Medication ?Instructions ?Recorded ?Confirmed acetaminophen 325 mg tablet 650 mg PO QID PRN Pain 06/06/24 06/06/24 (Tylenol) Previous Rx's ?Medication ?Instructions ?Recorded ondansetron 4 mg disintegrating 4 mg PO TID PRN nausea and 06/03/24 tablet vomiting #15 tabs acetaminophen 300 mg-codeine 30 mg 1 tab PO Q6H PRN pain #10 tabs 07/23/24 tablet oseltamivir 75 mg capsule (Tamiflu) 75 mg PO BID 5 days #10 caps 07/23/24 penicillin V potassium 500 mg 500 mg PO Q8H 7 days #21 tabs 07/23/24 tablet Allergies Allergy/AdvReac Type Severity Reaction Status Date / Time No Known Allergies Allergy Verified 06/06/24 15:16 Review of Systems Const: Reports: fever(s) and body aches Eyes: Denies: change in vision, blurry vision or photophobia ENMT: Reports: dental pain; Denies: throat pain, uvular edema, enlarged tonsils, odynophagia, hoarseness, swelling of lips/tongue, oral sores, ear or mastoid pain, nasal discharge or nasal congestion Card: Denies: chest pain Resp: Denies: dyspnea, productive cough, non-productive cough or chest congestion GI: Denies: nausea, vomiting or diarrhea Musc: Denies: neck pain Neuro: Denies: headache(s) PFSH ED PFSH: Social History Smoking and tobacco/nicotine status: unknown if used tobacco/nicotine Physical Exam Const: COMMON NORMALS: no acute distress, patient oriented x3, no limitations, alert and well nourished GENERAL APPEARANCE: cooperative NUTRITIONAL APPEARANCE: obese HENMT: COMMON NORMALS: normocephalic and atraumatic HEAD & SCALP: normal to inspection, normocephalic and atraumatic FACE & SINUS: normal facial exam, sinuses nontender and face symmetric; no erythema and no edema MOUTH: Normal oral and palatal mucosa present and lip normal TEETH & GINGIVA IMAGES:  1. cracked molar; no abscess THROAT: posterior oropharynx normal and tonsils normal; no uvular edema Neck/C-Spine: COMMON NORMALS: no lymphadenopathy GENERAL: No anterior neck swelling and No submandibular swelling Resp: COMMON NORMALS: normal respiratory effort and clear to auscultation bilaterally AUSCULTATION: clear to auscultation bilaterally Cardio: COMMON NORMALS: regular rate and regular rhythm RATE: regular rate RHYTHM: regular rhythm Neuro: COMMON NORMALS: patient oriented x3 SENSORIUM/ORIENTATION: Yes alert Course Vital Signs: Vital signs: Vital Signs Temperature 100.6 F H 07/23/24 12:42 Pulse Rate 127 H 07/23/24 12:42 Respiratory Rate 18 07/23/24 12:42 Blood Pressure 168/84 07/23/24 12:42 Pulse Oximetry 96 07/23/24 12:42 Oxygen Delivery Me thod Room Air 07/23/24 12:42 MDM - Dental/Oral Medical Decision Making Patient presented to the ED today with a main complaint of pain involving her left lower molar tooth. She did complain of some fevers and bodyaches starting yesterday. She did subsequently test positive for influenza A. Patient will be placed on antibiotics. She is requesting something to help with her dental discomfort. I did offer her Tamiflu as she is in the window for this and she does want this medication. Return to ED precautions discussed. Otherwise I would like her to follow-up with her dentist to soon as possible. Medical Records I reviewed the patient's medical records. Lab Data I reviewed the patient's lab results. Laboratory Results Coronavirus (PCR) Negative (Negative) 07/23/24 12:55 Influenza A (PCR) Positive (Negative) 07/23/24 12:55 Influenza Type B (PCR) Negative (Negative) 07/23/24 12:55 RSV (PCR) Negative (Negative) 07/23/24 12:55 All radiology interpretation(s) finalized by discharge Discharge Plan Discharge Patient Disposition: Home Clinical Impression: Toothache, Influenza A Condition: Stable Prescriptions: New penicillin V potassium 500 mg tablet 500 mg PO Q8H 7 Days Qty: 21 0RF acetaminophen-codeine 300-30 mg tablet 1 tab PO Q6H PRN (Reason: pain) Qty: 10 0RF oseltamivir [Tamiflu] 75 mg capsule 75 mg PO BID 5 Days Qty: 10 0RF No Action ondansetron 4 mg tablet,disintegrating 4 mg PO TID PRN (Reason: nausea and vomiting) Qty: 15 0RF acetaminophen [Tylenol] 325 mg Tablet 650 mg PO QID PRN (Reason: Pain) Discharge Orders: Discharge ED (Routine); Ordered 07/23/24 Ordered By: Maryse Caldera Referrals: Selin Anderson, PAC [Primary Care Provider] - Patient Instructions: Influenza (DC), Toothache Activity Restrictions/Additional Instructions: As we discussed, I am placing on antibiotics and something to help with your dental discomfort as this was her main presenting symptom on today's visit. You were subsequently found to be positive for influenza A which would explain your fevers and bodyaches. You have requested Tamiflu which has been called in as well. Print Language: [place] Coding Level of Care Code ED Senior Software Systems Engineer for Christine Cohn
[2024-07-23] MEDS: acetaminophen 500 mg Tablet 1000 MG PO (13:14)
[2024-07-23 13:53] LABS: Covid PCR NEGATIVE (Negative); Influenza A POSITIVE (Negative); Influenza B NEGATIVE (Negative); Respiratory Syncytial Virus Ce NEGATIVE (Negative)
[2024-07-23 14:10] VITALS: BP 130/65; PULSE 105; O2SAT 96
== END 2024-07-23 14:11 | disposition home or self-care (01) ==
PROVIDERS: Emergency Provider Physician Assistant; PCP Physician Assistant
DX: K08.89 Other specified disorders of teeth and supporting structures (principal); J10.1 Influenza due to other identified influenza virus with other respiratory manifestations; Z11.52 Encounter for screening for COVID-19
CPT/HCPCS: 87637; 99283

== ENCOUNTER 2024-07-26 15:31 | Emergency (ER) | payer SELFPAY ==
[2024-07-26 15:34] VITALS: BP 153/99; PULSE 85; RESP 14; TEMP 36.7; O2SAT 97
--- NOTE | 2024-07-26 15:55 | W.ED.URI ---
HPI - URI/Sore Throat General: Chief Complaint: Upper Respiratory Infection Stated Complaint: Flu A +, symptoms worsening Time Seen by Provider: 07/26/24 15:51 Source: patient Mode of arrival: ambulatory Limitations: no limitations History of Present Illness: 24-year-old female who was seen here Friday as diagnosed with influenza patient states that she is continue have cough and congestion and needs another work note she states she has not felt well enough to go back to work she denies any vomiting or diarrhea. Denies any worsening improving factors Associated symptoms: Reports nasal congestion; Deny abdominal pain, chills, chest pain, diarrhea, fever(s), headache(s), nausea or vomiting Related Data Home Medications ?Medication ?Instructions ?Recorded ?Confirmed acetaminophen 325 mg tablet 650 mg PO QID PRN Pain 06/06/24 06/06/24 (Tylenol) Previous Rx's ?Medication ?Instructions ?Recorded ondansetron 4 mg disintegrating 4 mg PO TID PRN nausea and 06/03/24 tablet vomiting #15 tabs acetaminophen 300 mg-codeine 30 mg 1 tab PO Q6H PRN pain #10 tabs 07/23/24 tablet oseltamivir 75 mg capsule (Tamiflu) 75 mg PO BID 5 days #10 caps 07/23/24 penicillin V potassium 500 mg 500 mg PO Q8H 7 days #21 tabs 07/23/24 tablet Allergies Allergy/AdvReac Type Severity Reaction Status Date / Time No Known Allergies Allergy Verified 07/26/24 15:40 Review of Systems Const: Denies: fever(s), chills, body aches or change in appetite ENMT: Reports: nasal congestion; Denies: throat pain or dental pain Card: Denies: chest pain Resp: Reports: non-productive cough; Denies: dyspnea GI: Denies: abdominal pain, nausea, vomiting or diarrhea Musc: Denies: neck pain or back pain Skin/Breast: Denies: rash Neuro: Denies: headache(s) PFSH ED PFSH: Social History Smoking and tobacco/nicotine status: unknown if used tobacco/nicotine Physical Exam Const: COMMON NORMALS: no acute distress, patient oriented x3 and healthy appearing HENMT: COMMON NORMALS: normocephalic and atraumatic HEAD & SCALP: normocephalic and atraumatic Eye: COMMON NORMALS: Equal, round and reactive pupils present and EOMs intact bilaterally PUPIL: Yes Equal, round and reactive pupils present Neck/C-Spine: COMMON NORMALS: full ROM and supple Chest: COMMONS NORMALS: normal inspection of the chest Resp: COMMON NORMALS: normal respiratory effort, No retractions, No use of accessory muscles and clear to auscultation bilaterally AUSCULTATION: clear to auscultation bilaterally Cardio: COMMON NORMALS: regular rate, regular rhythm and No murmurs present (Cardio) RATE: regular rate RHYTHM: regular rhythm Extremity: COMMON NORMALS: normal to inspection and full ROM Neuro: COMMON NORMALS: patient oriented x3, moves all extremities and no focal motor deficits Psych: COMMON NORMALS: mental status grossly normal, Normal thought process present and cooperative THOUGHT PROCESS: Normal thought process present Skin: COMMON NORMALS: no rashes or lesions noted and no wounds GENERAL SKIN EXAM: no rashes or lesions noted Course Vital Signs: Vital signs: Vital Signs Temperature 98.0 F 07/26/24 15:34 Pulse Rate 85 07/26/24 15:34 Respiratory Rate 14 07/26/24 15:34 Blood Pressure 153/99 07/26/24 15:34 Pulse Oximetry 97 07/26/24 15:34 Oxygen Delivery Me thod Room Air 07/26/24 15:34 MDM - URI/Sore Throat Medical Decision Making Patient presents here with influenza she is well-appearing here we will write her another work note she stable for discharge follow-up with PCP return if worsening she understands agrees to plan. Medical Records I reviewed the patient's medical records. No radiology studies performed this visit Discharge Plan Discharge Patient Disposition: Home Clinical Impression: Influenza A Condition: Stable Prescriptions: No Action ondansetron 4 mg tablet,disintegrating 4 mg PO TID PRN (Reason: nausea and vomiting) Qty: 15 0RF penicillin V potassium 500 mg tablet 500 mg PO Q8H 7 Days Qty: 21 0RF acetaminophen-codeine 300-30 mg tablet 1 tab PO Q6H PRN (Reason: pain) Qty: 10 0RF oseltamivir [Tamiflu] 75 mg capsule 75 mg PO BID 5 Days Qty: 10 0RF acetaminophen [Tylenol] 325 mg Tablet 650 mg PO QID PRN (Reason: Pain) Discharge Orders: Discharge ED (Routine); Ordered 07/26/24 Ordered By: Snageeta Fleming Referrals: Selin Anderson PAC [Primary Care Provider] - Discharge Diet: Advance as tolerated Discharge Activity: Resume usual activity Patient Instructions: Influenza (ED) Stand Alone Forms: Work/School Release Print Language: Swedish Coding Level of Care Code ED Helper Coordinator for Christine Cohn
[2024-07-26 16:07] VITALS: BP 123/84; PULSE 89; O2SAT 98
== END 2024-07-26 16:00 | disposition home or self-care (01) ==
PROVIDERS: Emergency Provider Emergency Medicine; PCP Physician Assistant
DX: J10.1 Influenza due to other identified influenza virus with other respiratory manifestations (principal)
CPT/HCPCS: 99281

== ENCOUNTER 2024-10-27 10:46 | Emergency (ER) | payer SELFPAY ==
[2024-10-27 11:01] VITALS: BP 134/79; PULSE 105; RESP 16; TEMP 37.1; O2SAT 98; BMI 39.9
--- NOTE | 2024-10-27 11:19 | XR_ITS ---
WS: [id number] Exam: XR chest 1V portable [id number] Date/Time of Exam: 10/27/2024 11:22 AM Reason For Exam: SOB Comparison 08/04/2023. Lungs are clear and fully expanded. Normal cardiomediastinal silhouette and regional bony elements. No pleural effusion. XR/XR chest 1V portable [id number] IMPRESSION: 1. Normal chest.
[2024-10-27 11:37] VITALS: BP 128/89; PULSE 88; O2SAT 98
[2024-10-27 11:44] LABS: Basophils # 0.1 10^3/uL (0.0-0.1); Basophils % 0.5 %; Eosinophils # 0.2 10^3/uL (0.0-0.8); Eosinophils % 1.8 %; Hematocrit 45.4 % (36-47); Lymphocytes # 4.4 10^3/uL (0.8-4.8); Lymphocytes % 33.9 %; Mean Corpuscular HGB Conc 32.8 g/dL (30-55); Mean Corpuscular Hemoglobin 27.6 pg (27-33); Mean Corpuscular Volume 84.1 fl (85-98); Mean Platelet Volume 10.7 fL (7.4-10.4); Monocytes # 0.8 10^3/uL (0.2-0.9); Neutrophils % 57.4 %; Nucleated Red Blood Cells % 0 %; Platelet Count 288 10^3/cmm (157-399); Red Cell Distribution Width 12.4 % (12.1-15.1); White Blood Count 13.08 10^3/uL (3.29-11.43)
[2024-10-27 11:51] LABS: Bilirubin Urine Negative (Negative); Blood Urine Negative (Negative); Glucose Urine UA Negative (Normal); Ketones Urine Negative (Negative); Leukocyte Esterase Urine Trace (Negative); Nitrate Urine Negative (Negative); Protein Urine Negative (Negative); Specific Gravity, Urine 1.024 (1.005-1.030); Urine Appearance Clear (CLEAR); Urine Color Yellow (Yellow); pH Urine 6.5 (5-7)
[2024-10-27 11:56] LABS: Add Urine Microscopic? YES; Bacteria Urine 2+ /hpf
[2024-10-27 11:59] LABS: Amphetamines Screen Urine Negative (Negative); Barbiturates Screen Urine Negative (Negative); Benzodiazepines Screen Urine Negative (Negative); Cocaine Screen Urine Negative (Negative); Opiate Screen Urine Negative (Negative); PCP Screen Urine Negative (Negative); THC Screen Urine Positive (Negative)
[2024-10-27 12:05] LABS: D Dimer <= 0.27 ug/mLFEU (0-0.59)
[2024-10-27 12:09] LABS: Anion Gap 13.7 (5-19); Blood Urea Nitrogen 11 mg/dL (6-20); Calcium 9.4 mg/dL (8.5-10.5); Carbon Dioxide 26 mmol/L (22-29); Chloride 102 mmol/L (98-107); Creatinine Clr Calc Pharmacy 177.4453; Glomerular Filtration Rate 122.8 mL/min (90-130); Glucose 87 mg/dL (65-115); Osmolality Calculated 285 mOsm/kg (285-295); Potassium 3.7 mmol/L (3.5-5.1); Sodium 138 mmol/L (136-145)
[2024-10-27 12:12] LABS: Add Urine Culture? No
[2024-10-27 12:51] LABS: HCG Qualitative Urine. Negative (Negative)
--- NOTE | 2024-10-27 13:01 | W.ED.EXTPRO ---
HPI - Extremity Problem General: Chief complaint: Extremity Problem,Nontraumatic Stated complaint: shakey, tingling in hands Time Seen by Provider: 10/27/24 11:07 History of Present Illness: This patient is a 24-year-old white female who presents to the emergency department complaining of numbness and tingling in the right hand over the ulnar distribution. She is also having some numbness of the anterior aspect of the right elbow and in the right trapezius. She states she has also had some occasional numbness around the left collarbone. No chest pain or shortness of breath. Patient denies chronic medical problems. She takes no medications. Related Data Home Medications ?Medication ?Instructions ?Recorded ?Confirmed acetaminophen 325 mg tablet 650 mg PO QID PRN Pain 06/06/24 10/27/24 (Tylenol) ibuprofen 200 mg tablet (Advil) 200 mg PO Q6H PRN Fever Or Pain 10/27/24 10/27/24 Allergies Allergy/AdvReac Type Severity Reaction Status Date / Time No Known Allergies Allergy Verified 10/27/24 11:03 Review of Systems General: Reports: 10 or more systems reviewed and unremarkable except in HPI and below Neuro: Reports: numbness in extremities (Right hand, right elbow and right trapezius) PFSH ED PFSH: Social History Smoking and tobacco/nicotine status: unknown if used tobacco/nicotine Female Reproductive History: Date of last menstrual period: 07/31/24 Physical Exam Const: COMMON NORMALS: no acute distress, patient oriented x3 and no limitations GENERAL APPEARANCE: cooperative and comfortable HENMT: COMMON NORMALS: normocephalic, atraumatic, Normal nasal mucous membranes and turbinates present, moist oral mucous membranes and oropharynx normal HEAD & SCALP: normal to inspection, normocephalic and atraumatic FACE & SINUS: normal facial exam NOSE: Normal nasal mucous membranes and turbinates present Eye: COMMON NORMALS: Equal, round and reactive pupils present, EOMs intact bilaterally and conjunctivae normal GENERAL EYE: appearance normal, both eyes and all related structures CONJUNCTIVA: Yes conjunctivae normal PUPIL: Yes Equal, round and reactive pupils present Neck/C-Spine: COMMON NORMALS: supple and no JVD Chest: COMMONS NORMALS: normal inspection of the chest Resp: COMMON NORMALS: normal respiratory effort and clear to auscultation bilaterally AUSCULTATION: clear to auscultation bilaterally Cardio: COMMON NORMALS: no JVD, regular rate, regular rhythm, No gallops present (Cardio), No murmurs present (Cardio) and No rub (Cardio) RATE: regular rate RHYTHM: regular rhythm GI: COMMON NORMALS: Normal to inspection, nondistended, normoactive bowel sounds present, Soft to palpation and non-tender AUSCULTATION: Yes normoactive bowel sounds PALPATION: Yes Soft to palpation : COMMON NORMALS: Yes no CVA tenderness BLADDER/KIDNEY EXAM: Yes no CVA tenderness Back/Pelvis: COMMON NORMALS: no CVA tenderness and thoracic and lumbar spine normal to inspection Extremity: COMMON NORMALS: normal to inspection Neuro: COMMON NORMALS: patient oriented x3 and CN's II-XII intact bilaterally Psych: COMMON NORMALS: mental status grossly normal, Normal thought process present and cooperative THOUGHT PROCESS: Normal thought process present Skin: COMMON NORMALS: no rashes or lesions noted, turgor normal and no jaundice GENERAL SKIN EXAM: no rashes or lesions noted and turgor normal Course Vital Signs: Vital signs: Vital Signs Temperature 98.7 F 10/27/24 11:01 Pulse Rate 88 10/27/24 11:37 Respiratory Rate 16 10/27/24 11:01 Blood Pressure 128/89 10/27/24 11:37 Pulse Oximetry 98 10/27/24 11:37 Oxygen Delivery Me thod Room Air 10/27/24 11:37 MDM - Extremity (Nontraumatic) Medical Decision Making CBC revealed a white blood cell count of 13.1. BMP was normal. D-dimer less than 0.27. hCG negative. Urine analysis normal. Urine drug screen was positive for THC. Patient was reassured. I recommended she follow-up with her primary care provider if this persists she may need referral to neurology for nerve conduction study. She was discharged in stable condition. Lab Data 10/27/24 11:37 10/27/24 11:37 Radiology Impressions Chest X-Ray 10/27/24 11:19 IMPRESSION: 1. Normal chest. Laboratory Results WBC 13.08 10^3/uL (3.29-11.43) H 10/27/24 11:37 RBC 5.40 10^6/uL (3.85-5.65) 10/27/24 11:37 Hgb 14.90 g/dL (11.27-16.99) 10/27/24 11:37 Hct 45.4 % (36-47) 10/27/24 11:37 MCV 84.1 fl (85-98) L 10/27/24 11:37 MCH 27.6 pg (27-33) 10/27/24 11:37 MCHC 32.8 g/dL (30-55) 10/27/24 11:37 RDW 12.4 % (12.1-15.1) 10/27/24 11:37 Plt Count 288 10^3/cmm (157-399) 10/27/24 11:37 MPV 10.7 fL (7.4-10.4) H 10/27/24 11:37 Neut % (Auto) 57.4 % 10/27/24 11:37 Lymph % (Auto) 33.9 % 10/27/24 11:37 Cooper % (Auto) 6.0 % 10/27/24 11:37 Eos % (Auto) 1.8 % 10/27/24 11:37 Baso % (Auto) 0.5 % 10/27/24 11:37 Neut # (Auto) 7.50 10^3/uL (1.8-7.7) 10/27/24 11:37 Lymph # (Auto) 4.4 10^3/uL (0.8-4.8) 10/27/24 11:37 Cooper # (Auto) 0.8 10^3/uL (0.2-0.9) 10/27/24 11:37 Eos # (Auto) 0.2 10^3/uL (0.0-0.8) 10/27/24 11:37 Baso # (Auto) 0.1 10^3/uL (0.0-0.1) 10/27/24 11:37 Nucleated RBC % (auto) 0 % 10/27/24 11:37 Nucleated RBCs # 0.0 /100WBC 10/27/24 11:37 D-Dimer <= 0.27 ug/mLFEU (0-0.59) 10/27/24 11:37 Sodium 138 mmol/L (136-145) 10/27/24 11:37 Potassium 3.7 mmol/L (3.5-5.1) 10/27/24 11:37 Chloride 102 mmol/L (98-107) 10/27/24 11:37 Carbon Dioxide 26 mmol/L (22-29) 10/27/24 11:37 Anion Gap 13.7 (5-19) 10/27/24 11:37 BUN 11 mg/dL (6-20) 10/27/24 11:37 Creatinine 0.6 mg/dL (0.5-0.9) 10/27/24 11:37 GFR Calculation 122.8 mL/min (90-130) 10/27/24 11:37 Glucose 87 mg/dL (65-115) 10/27/24 11:37 Calculated Osmolality 285 mOsm/kg (285-295) 10/27/24 11:37 Calcium 9.4 mg/dL (8.5-10.5) 10/27/24 11:37 HCG, Qual Negative (Negative) 10/27/24 11:43 Urine Color Yellow (Yellow) 10/27/24 11:43 Urine Appearance Clear (CLEAR) 10/27/24 11:43 Urine pH 6.5 (5-7) 10/27/24 11:43 Ur Specific [place] 1.024 (1.005-1.030) 10/27/24 11:43 Urine Protein Negative (Negative) 10/27/24 11:43 Urine Glucose (UA) Negative (Normal) 10/27/24 11:43 Urine Ketones Negative (Negative) 10/27/24 11:43 Urine Blood Negative (Negative) 10/27/24 11:43 Urine Nitrate Negative (Negative) 10/27/24 11:43 Urine Bilirubin Negative (Negative) 10/27/24 11:43 Urine Urobilinogen 1.0 mg/dL (Negative) 10/27/24 11:43 Ur Leukocyte Esterase Trace (Negative) A 10/27/24 11:43 Urine RBC 3-5 /hpf (0-2) 10/27/24 11:43 Urine WBC 6-10 /hpf (0-5) 10/27/24 11:43 Ur Squamous Epith Cells 6-10 /hpf (0-5) 10/27/24 11:43 Amorphous Sediment Not Reportable 10/27/24 11:43 Urine Bacteria 2+ /hpf (NONE) H 10/27/24 11:43 Hyaline Casts 0.40 /lpf 10/27/24 11:43 Urine Opiates Screen Negative ng/mL (Negative) 10/27/24 11:43 Ur Barbiturates Screen Negative ng/mL (Negative) 10/27/24 11:43 Ur Phencyclidine Scrn Negative ng/mL (Negative) 10/27/24 11:43 Ur Amphetamines Screen Negative ng/mL (Negative) 10/27/24 11:43 U Benzodiazepines Scrn Negative ng/mL (Negative) 10/27/24 11:43 Urine Cocaine Screen Negative ng/mL (Negative) 10/27/24 11:43 U Marijuana (THC) Screen Positive ng/mL (Negative) H 10/27/24 11:43 All radiology interpretation(s) finalized by discharge Discharge Plan Discharge Patient Disposition: Home Clinical Impression: Numbness and tingling Condition: Stable Prescriptions: No Action acetaminophen [Tylenol] 325 mg Tablet 650 mg PO QID PRN (Reason: Pain) ibuprofen [Advil] 200 mg Tablet 200 mg PO Q6H PRN (Reason: Fever Or Pain) Discharge Orders: Discharge ED (Routine); Ordered 10/27/24 Ordered By: Aristeo Calero Referrals: Selin Anderson, PAC [Primary Care Provider, [employer]icians [employer] Clerk] Patient Instructions: Numbness and Tingling Stand Alone Forms: Work/School Release Print Language: Nam[place]ian Coding Level of Care Code ED Interlocking Machine Operator for Christine Cohn
[2024-10-27 13:18] VITALS: BP 122/75; PULSE 81; O2SAT 96
== END 2024-10-27 13:19 | disposition home or self-care (01) ==
PROVIDERS: Emergency Provider Emergency Medicine; PCP Physician Assistant
DX: R20.0 Anesthesia of skin (principal)
CPT/HCPCS: 36415; 71045; 80048; 80306; 81001; 81025; 85025; 85378; 99284